=== PATIENT | male | born 1945 | race Caucasian/White ===

== ENCOUNTER 2024-04-15 10:35 | Emergency (ER) | payer MEDICARE ==
[~2024-04-15] VITALS: Ht 188 cm; Wt 83.9 kg
[~2024-04-15 10:35] MED LIST: DOXYCYCLINE HY100 MG PO
[2024-04-15 13:38] VITALS: BP 172/91; PULSE 58; RESP 16
[2024-04-15 14:29] VITALS: PULSE 58; RESP 18; TEMP 97.8; O2SAT 99
== END 2024-04-15 14:33 | disposition other institution (70) ==
LOC: ER 10:39
DX: S72.8X1A Other fracture of right femur, initial encounter for closed fracture (principal); M97.01XA Periprosthetic fracture around internal prosthetic right hip joint, initial encounter; W18.39XA Other fall on same level, initial encounter; Y93.01 Activity, walking, marching and hiking; Y92.89 Other specified places as the place of occurrence of the external cause; I10 Essential (primary) hypertension; E78.5 Hyperlipidemia, unspecified; G62.9 Polyneuropathy, unspecified; Z96.653 Presence of artificial knee joint, bilateral
CPT/HCPCS: 99284

== ENCOUNTER 2024-07-16 09:14 | Outpatient (RCR) | payer MEDICARE | END 2024-08-13 | LOC: PT 09:14 | PROVIDERS: ATTEND Orthopaedic Surgery | DX: M79.604 Pain in right leg (principal) ==